=== PATIENT | female | born 1985 | race Caucasian/White ===

== ENCOUNTER 2018-06-11 09:51 | Emergency (ER) | payer SELFPAY ==
[~2018-06-11] VITALS: Ht 154.9 cm; Wt 56.8 kg
[2018-06-11] MEDS ORDERED: MetroNIDAZOLE 500 MG TABLET PO ONE (11:30)
[2018-06-11] MEDS ORDERED: AZITHROMYCIN 250 MG TABLET PO ONE (11:30)
[2018-06-11] MEDS ORDERED: CefTRIAXone SODIUM 1 GM/VIAL IM ONE (11:30)
[2018-06-11] MEDS ORDERED: LIDOCAINE/PF 1% 2 ML VIAL IM ONE (11:30)
[2018-06-11 12:00] LABS: BILIRUBIN,URINE NEGATIVE (NEGATIVE); GLUCOSE, URINE (UA) NEGATIVE (NEGATIVE); KETONES,URINE NEGATIVE (NEGATIVE); NITRATE,URINE NEGATIVE (NEGATIVE); PROTEIN,URINE NEGATIVE (NEGATIVE); UROBILINOGEN,URINE 0.2 mg/dL (<=1.0)
[2018-06-11 12:08] LABS: APPEARANCE,URINE HAZY (CLEAR); LEUKOCYTE ESTERASE ,URINE MODERATE (NEGATIVE); OCCULT BLOOD,URINE MODERATE (NEGATIVE)
[2018-06-11 12:09] LABS: BACTERIA,URINE None Seen /HPF (None Seen); SQUAMOUS EPITHELIAL CELL,UR Few /LPF (None Seen)
[2018-06-11 12:30] VITALS: BP 125/73
== END 2018-06-11 12:48 | disposition home or self-care (01) ==
LOC: EMS 09:52
DX: N34.2 Other urethritis (principal); F17.210 Nicotine dependence, cigarettes, uncomplicated; F14.90 Cocaine use, unspecified, uncomplicated; F12.90 Cannabis use, unspecified, uncomplicated; F15.90 Other stimulant use, unspecified, uncomplicated
CPT/HCPCS: 81001; 84703; 87086; 96372; 99284; J0696; J3490